=== PATIENT | male | born 1950 | race Hispanic/Latino ===

== ENCOUNTER → 2017-03-12 | Outpatient (CLI) | payer OTHER, MEDICARE ==
[~2017-03-12] MED LIST: ASPI-1197 PO; ATOR40TA71 PO; FISH1CAP49 PO; GLIP5TAB11 PO; INSU100V12 SQ; IOPAMIDOL-370 75 ML VIAL IV ONE; LISI2.5T2 PO; METF10004 PO; MULT-1203 PO; OMEP-272 PO; POLY454P5 MC; RANI150T7 PO
== END | disposition home or self-care (01) ==
LOC: OIH 07:44
PROVIDERS: ATTEND Internal Medicine Gastroenterology
DX: D37.6 Neoplasm of uncertain behavior of liver, gallbladder and bile ducts (principal); R94.5 Abnormal results of liver function studies
CPT/HCPCS: 74170; Q9967

== ENCOUNTER → 2017-03-15 | Outpatient (CLI) | payer OTHER, MEDICARE ==
[~2017-03-15] MED LIST changes: -IOPAMIDOL-370 75 ML VIAL IV ONE
== END | disposition home or self-care (01) ==
LOC: OIH 15:14
PROVIDERS: ATTEND Internal Medicine Gastroenterology
DX: D37.6 Neoplasm of uncertain behavior of liver, gallbladder and bile ducts (principal); M47.895 Other spondylosis, thoracolumbar region; I77.1 Stricture of artery
CPT/HCPCS: 71046